=== PATIENT | male | born 1970 | race Caucasian/White ===

== ENCOUNTER 2017-07-29 20:49 | Emergency (ER) | payer BC ==
[~2017-07-29] VITALS: Ht 160 cm; Wt 68.2 kg
[2017-07-29 22:50] VITALS: BP 131/79
== END 2017-07-29 22:53 | disposition home or self-care (01) ==
LOC: EDBD 20:55 → EMS 20:55
DX: B34.9 Viral infection, unspecified (principal); J02.9 Acute pharyngitis, unspecified; M79.1 Myalgia; R51 Headache; R68.89 Other general symptoms and signs
CPT/HCPCS: 99282; 99283